=== PATIENT | female | born 1985 | race Caucasian/White ===

== ENCOUNTER 2019-05-30 19:06 | Emergency (ER) | payer OTHER ==
[2019-05-30 19:36] VITALS: BP 149/54; PULSE 98; RESP 18; TEMP 98.1
[2019-05-30 20:48] LABS: Appearance,Urine Cloudy (Clear); Bilirubin,Urine Negative (Negative); Blood,Urine Trace (Negative); Color,Urine Yellow; Glucose,Urine (UA) Negative (Negative); Ketones,Urine Negative (Negative); Leukocyte Esterase,Urine Large (Negative); Mucus,Urine Occasional /hpf; Nitrite,Urine Negative (Negative); Protein,Urine Negative (Negative); RBC,Urine 5 /hpf (0-5); Specific Gravity,Urine 1.014 (1.001-1.035); Squamous Epithelial Cell,Urine 6 /hpf (0-4); Urobilinogen,Urine <2.0 mg/dL (<2.0); WBC,Urine 23 /hpf (0-5)
[2019-05-30 21:35] LABS: Basophils # (A) 0.1 k/uL (0-0.2); Basophils % (A) 0 %; Eosinophils # (A) 0.3 k/uL (0-0.7); Eosinophils % (A) 2 %; HCT 34.7 % (34.0-46.0); HGB 11.4 gm/dL (11.4-16.0); Lymphocytes # (A) 2.3 k/uL (1.0-4.8); Lymphocytes % (A) 13 %; MCH 28.6 pg (25.0-35.0); MCHC 32.8 g/dL (31.0-37.0); MCV 87.1 fL (80.0-100.0); Mean Platelet Volume 7.2; Monocytes # (A) 0.9 k/uL (0-1.0); Monocytes % (A) 5 %; Neutrophils # (A) 13.8 k/uL (1.3-7.7); Neutrophils % (A) 79 %; Platelet Count 245 k/uL (150-450); RBC 3.98 m/uL (3.80-5.40); RDW 13.7 % (11.5-15.5); WBC 17.5 k/uL (3.8-10.6)
[2019-05-30 21:43] LABS: INR 0.8 (<1.2); Partial Thromboplastin Time 26.6 sec (22.0-30.0); Prothrombin Time 9.4 sec (9.0-12.0)
[2019-05-30 21:44] LABS: ALT 18 U/L (9-52); AST 17 U/L (14-36); African American GFR (CKD) >90 (>60 ml/min/1.73 sqM); Albumin 3.9 g/dL (3.5-5.0); Alkaline Phosphatase 56 U/L (38-126); Anion Gap 8 mmol/L; Blood Urea Nitrogen 9 mg/dL (7-17); Carbon Dioxide 26 mmol/L (22-30); Chloride 103 mmol/L (98-107); Glucose 78 mg/dL (74-99); Potassium 3.9 mmol/L (3.5-5.1); Sodium 137 mmol/L (137-145); Total Bilirubin <0.1 mg/dL (0.2-1.3); Total Protein 6.8 g/dL (6.3-8.2)
[2019-05-30 22:31] LABS: HCG,Quantitative Serum 42960.6 mIU/mL
--- NOTE | 2019-05-30 22:31 | US ---
EXAM: US After First Trimester, Transabdominal/Transvaginal DATE OF EXAM: 05/30/2019 10:11 PM COMPARISON: NONE CLINICAL HISTORY: pain. Pain per order. Vaginal bleeding x 5 days. Hx ovarian cyst. . EXAM PERFORMED: Transvaginal (TV) and Transabdominal (TA). Transvaginal imaging performed to better visualize mixed area seen in right ovary and to visualize left ovary. EXAM MEASUREMENTS: GESTATIONAL AGE / DATING Physician Established: Not yet established Dates by LMP: (14 weeks/0 days) EDC: 11/28/2019 Dates by First Scan: This is first scan Dates by Current Scan for: (13 weeks/6 days) EDC: 11/29/2019 MATERNAL ANATOMY Uterus: 12.9 x 8.0 x 9.0 cm. Right Ovary: 4.9 x 2.2 x 2.4 cm. Anechoic area with echogenic components seen measurin.8 x 2.0 x 2.1 cm. Left Ovary: not seen secondary to bowel gas Post CDS / Adnexa: appear wnl Presence of free fluid: minimal adjacent to right ovary Presence of corpus luteal cyst: Area of mixed echogenicity and peripheral vascularity seen measurin.6 x 1.6 x 1.9 cm. Presence of subchorionic bleed: not seen GESTATION / SURVEY CRL: 7.76 cm. (13 weeks/6 days) Yolk Sac (normal less than 6mm): not seen Heart Rate: 158 bpm Rhythm: Normal IUP: Viable IUP Date of LMP: 02/21/2019 Beta HcG (if available): not available IMPRESSION: 1. Single live IUP with an estimated gestational age of 13 weeks and 6 days. 2. Simple-appearing cyst within the right ovary measured 2.8 cm. Corpus luteum is also noted within the right ovary. No torsion.
[2019-05-30] MEDS ORDERED: cefTRIAXone 1,000 MG VIAL (IM USE) IM STA (22:49)
[2019-05-30] MEDS ORDERED: AZITHROMYCIN 250 MG TAB PO STA (22:50)
[2019-05-30] MEDS ORDERED: cefTRIAXone 250 MG VIAL IM STA (22:57)
[2019-05-30] MEDS ORDERED: metroNIDAZOLE 500 MG TAB PO STA (23:21)
--- NOTE | 2019-05-30 23:27 | ED ---
Female Urogenital HPI - General Chief complaint: Vaginal Bleeding Stated complaint: 15wks preg, bleeding Time Seen by Provider: 05/30/19 19:41 Source: patient Mode of arrival: ambulatory Limitations: no limitations - History of Present Illness Initial comments: the patient is a 33-year-old female presents to the emergency room with reported vaginal bleeding. She states it is been going on for the past 5 days. She is currently approximately 14 weeks . States her last menstrual period was February 21. She has had no care. She is currently at [facility] for rehab. states that she is on methadone for opioid addiction. the bleeding was bright red blood in color. Is now turned into a brownish discoloration and has slowed. She reports abnormal discharge with the bleeding. States the discharge is also brown and thick in color. She does have concern for sexually transmitted infections. She denies any pelvic pain or cramping. No reported fevers or chills. Denies any chest pain or shortness of breath. no back pain or flank pain. Denies dysuria, hematuria or difficulty voiding. Denies any changes in her bowel movements. She denies any nausea or vomiting. No headaches, visual changes, right upper quadrant abdominal pain or lower extremity edema. there are no other alleviating, precipitating or modifying factors Last Menstrual Period: 02/21/19 - Related Data Previous Rx's Medication Instructions Recorded Cephalexin [Keflex] 500 mg PO BID #10 cap 05/30/19 metroNIDAZOLE [Flagyl] 500 mg PO BID #14 tab 05/30/19 Allergies Allergy/AdvReac Type Severity Reaction Status Date / Time No Known Allergies Allergy Verified 05/30/19 20:12 Review of Systems ROS Statement: Those systems with pertinent positive or pertinent negative responses have been documented in the HPI. ROS Other: All systems not noted in ROS Statement are negative. Past Medical History Past Medical History: No Reported History History of Any Multi-Drug Resistant Organisms: None Reported Past Surgical History: Adenoidectomy, Appendectomy, Tonsillectomy Past Psychological History: No Psychological Hx Reported Smoking Status: Current every day smoker Past Alcohol Use History: None Reported Past Drug Use History: None Reported General Exam Limitations: no limitations Course Vital Signs 05/30/19 19:33 Temperature 98.1 F Pulse Rate 98 Respiratory 18 Rate Blood Pressure 149/54 O2 Sat by Pulse 100 Oximetry Medical Decision Making - Medical Decision Making the patient is placed in room 25. I did perform a thorough history and physical exam. I did discuss diagnosis, differential and treatment options. I did recommend laboratory studies, urinalysis and a pelvic ultrasound. The patient did agree to this. Upon return results the patient does have O+ blood type. Her with blood cell count is 17.5. Beta Quant is a 42,960. urinalysis is positive for the site esterase and white blood cells. it is not a clean Katsch. pelvic ultrasound demonstrates an intrauterine at 13 weeks 6 days. there is positive heart tones at 150 bpm. I did inform the patient of these results. A pelvic examination was performed with the presence of a female nurse. Examination revealed normal external female genitalia. Speculum exam did reveal a moderate amount of thickgreen , purulent drainage. I did take cultures. I did recommend treatment with Rocephin and azithromycin. The patient was given 250 mg IM of Rocephin and 1 g of oral azithromycin. I also provided the patient with 500 mg of Flagyl as I am concerned for BV. The patient's will be discharged home at this time and is given a prescription for Flagyl and Keflex. She is to take a vitamin. reason needs to follow-up with her GRAPHIC ARTS INSTRUCTOR within 2-4 days. this is written on the patient's discharge paperwork should there is no miscommunication when she returns back to [facility]. the patient's initial blood pressure was noted to be elevated. patient is asystematic at this time. No signs of protein in the urine , lower extremity swelling , headaches or right upper quadrant abdominal pain. if the patient has any new or worsening symptoms she male voice come back to the emergency room for further evaluation. The patient understood this. She was given written and verbal discharge instructions she was discharged home in stable condition - Lab Data Result diagrams: 05/30/19 21:25 05/30/19 21:25 Lab Results 05/30/19 05/30/19 05/30/19 Range/Units 20:20 21:25 21:25 WBC 17.5 H (3.8-10.6) k/uL RBC 3.98 (3.80-5.40) m/uL Hgb 11.4 (11.4-16.0) gm/dL Hct 34.7 (34.0-46.0) % MCV 87.1 (80.0-100.0) fL MCH 28.6 (25.0-35.0) pg MCHC 32.8 (31.0-37.0) g/dL RDW 13.7 (11.5-15.5) % Plt Count 245 (150-450) k/uL Neutrophils % 79 % Lymphocytes % 13 % Monocytes % 5 % Eosinophils % 2 % Basophils % 0 % Neutrophils # 13.8 H (1.3-7.7) k/uL Lymphocytes # 2.3 (1.0-4.8) k/uL Monocytes # 0.9 (0-1.0) k/uL Eosinophils # 0.3 (0-0.7) k/uL Basophils # 0.1 (0-0.2) k/uL PT (9.0-12.0) sec INR (<1.2) APTT (22.0-30.0) sec Sodium (137-145) mmol/L Potassium (3.5-5.1) mmol/L Chloride (98-107) mmol/L Carbon Dioxide (22-30) mmol/L Anion Gap mmol/L BUN (7-17) mg/dL Creatinine (0.52-1.04) mg/dL Est GFR (CKD-EPI)AfAm (>60 ml/min/1.73 sqM) Est GFR (CKD-EPI)NonAf (>60 ml/min/1.73 sqM) Glucose (74-99) mg/dL Calcium (8.4-10.2) mg/dL Total Bilirubin (0.2-1.3) mg/dL AST (14-36) U/L ALT (9-52) U/L Alkaline Phosphatase (38-126) U/L Total Protein (6.3-8.2) g/dL Albumin (3.5-5.0) g/dL HCG, Quant mIU/mL Urine Color Yellow Urine Appearance Cloudy H (Clear) Urine pH 6.0 (5.0-8.0) Ur Specific [place] 1.014 (1.001-1.035) Urine Protein Negative (Negative) Urine Glucose (UA) Negative (Negative) Urine Ketones Negative (Negative) Urine Blood Trace H (Negative) Urine Nitrite Negative (Negative) Urine Bilirubin Negative (Negative) Urine Urobilinogen <2.0 (<2.0) mg/dL Ur Leukocyte Esterase Large H (Negative) Urine RBC 5 (0-5) /hpf Urine WBC 23 H (0-5) /hpf Ur Squamous Epith Cells 6 H (0-4) /hpf Urine Mucus Occasional H (None) /hpf Trichomonas Ag (Rapid) (Negative) Blood Type O Positive Blood Type Recheck No Previous Record Bld Type Recheck Status ABR ONLY 05/30/19 05/30/19 05/30/19 Range/Units 21:25 21:25 23:00 WBC (3.8-10.6) k/uL RBC (3.80-5.40) m/uL Hgb (11.4-16.0) gm/dL Hct (34.0-46.0) % MCV (80.0-100.0) fL MCH (25.0-35.0) pg MCHC (31.0-37.0) g/dL RDW (11.5-15.5) % Plt Count (150-450) k/uL Neutrophils % % Lymphocytes % % Monocytes % % Eosinophils % % Basophils % % Neutrophils # (1.3-7.7) k/uL Lymphocytes # (1.0-4.8) k/uL Monocytes # (0-1.0) k/uL Eosinophils # (0-0.7) k/uL Basophils # (0-0.2) k/uL PT 9.4 (9.0-12.0) sec INR 0.8 (<1.2) APTT 26.6 (22.0-30.0) sec Sodium 137 (137-145) mmol/L Potassium 3.9 (3.5-5.1) mmol/L Chloride 103 (98-107) mmol/L Carbon Dioxide 26 (22-30) mmol/L Anion Gap 8 mmol/L BUN 9 (7-17) mg/dL Creatinine 0.40 L (0.52-1.04) mg/dL Est GFR (CKD-EPI)AfAm >90 (>60 ml/min/1.73 sqM) Est GFR (CKD-EPI)NonAf >90 (>60 ml/min/1.73 sqM) Glucose 78 (74-99) mg/dL Calcium 9.0 (8.4-10.2) mg/dL Total Bilirubin <0.1 L (0.2-1.3) mg/dL AST 17 (14-36) U/L ALT 18 (9-52) U/L Alkaline Phosphatase 56 (38-126) U/L Total Protein 6.8 (6.3-8.2) g/dL Albumin 3.9 (3.5-5.0) g/dL HCG, Quant 44624.6 mIU/mL Urine Color Urine Appearance (Clear) Urine pH (5.0-8.0) Ur Specific [place] (1.001-1.035) Urine Protein (Negative) Urine Glucose (UA) (Negative) Urine Ketones (Negative) Urine Blood (Negative) Urine Nitrite (Negative) Urine Bilirubin (Negative) Urine Urobilinogen (<2.0) mg/dL Ur Leukocyte Esterase (Negative) Urine RBC (0-5) /hpf Urine WBC (0-5) /hpf Ur Squamous Epith Cells (0-4) /hpf Urine Mucus (None) /hpf Trichomonas Ag (Rapid) Negative (Negative) Blood Type Blood Type Recheck Bld Type Recheck Status Disposition Clinical Impression: Vaginal bleeding, Second trimester , Cervicitis Disposition: HOME SELF-CARE Condition: Stable Instructions (If sedation given, give patient instructions): Threatened Miscarriage (ED), Cervicitis (ED), Urinary Tract Infection in Women (ED) Additional Instructions: Please follow-up with your GRAPHIC ARTS INSTRUCTOR within 2-4 days. You must absolutely be re- evaluated and have repeat bloodwork performed. Return to the emergency room if you have any new or worsening symptoms Prescriptions: metroNIDAZOLE [Flagyl] 500 mg PO BID #14 tab Cephalexin [Keflex] 500 mg PO BID #10 cap Is patient prescribed a controlled substance at d/c from ED?: No Referrals: None,Stated [Primary Care Provider] - 1-2 days Time of Disposition: 23:27
[2019-06-01 13:49] LABS: C. trachomatis,PCR Negative (Neg,Equiv); Chlamydia trachomatis Source Vagina
[2019-06-01 14:01] LABS: N. gonorrhoeae,PCR Negative (Neg,Equiv); Neisseria Source Vagina
== END 2019-05-30 23:36 | disposition home or self-care (01) ==
LOC: EC 19:06
DX: O23.512 Infections of cervix in pregnancy, second trimester (principal); O99.332 Smoking (tobacco) complicating pregnancy, second trimester; F17.200 Nicotine dependence, unspecified, uncomplicated; Z53.9 Procedure and treatment not carried out, unspecified reason; Z3A.13 13 weeks gestation of pregnancy
CPT/HCPCS: 36415; 86900; 86901; 80053; 85025; 85610; 85730; 81001; 84702; 87808; 87491; 87591; 87070; 87205; 76801; 76817; 96372; 99284; J0696

== ENCOUNTER 2019-06-02 10:29 | Emergency (ER) | payer OTHER ==
[2019-06-02 10:35] VITALS: TEMP 97.5
[2019-06-02 11:47] LABS: Basophils # (A) 0.1 k/uL (0-0.2); Basophils % (A) 0 %; Eosinophils # (A) 0.4 k/uL (0-0.7); Eosinophils % (A) 2 %; HCT 32.3 % (34.0-46.0); HGB 10.8 gm/dL (11.4-16.0); Lymphocytes # (A) 2.1 k/uL (1.0-4.8); Lymphocytes % (A) 13 %; MCH 28.7 pg (25.0-35.0); MCHC 33.3 g/dL (31.0-37.0); MCV 86.1 fL (80.0-100.0); Mean Platelet Volume 7.3; Monocytes # (A) 0.6 k/uL (0-1.0); Monocytes % (A) 4 %; Neutrophils # (A) 12.7 k/uL (1.3-7.7); Neutrophils % (A) 79 %; Platelet Count 298 k/uL (150-450); RBC 3.75 m/uL (3.80-5.40); RDW 15.1 % (11.5-15.5)
--- NOTE | 2019-06-02 11:52 | ED ---
Female Urogenital HPI - General Source: patient Mode of arrival: ambulatory Limitations: no limitations <Kathy Andersen - Last Filed: 06/02/19 18:47> <Harika Kumar - Last Filed: 06/05/19 02:48> - General Chief complaint: Vaginal Bleeding Stated complaint: Vaginal bleeding-14 wks pg Time Seen by Provider: 06/02/19 10:41 - History of Present Illness Initial comments: Patient is a 33-year-old female presenting to the emergency Department with complaints of vaginal bleeding for approximately 1 week. Patient is currently 14 weeks . Patient is . Patient has had no care yet. Patient has an appointment with BUSINESS DEVELOPMENT ENGINEER in one week. She is currently at [facility] for rehab and is on methadone for opioid addiction. Patient was in the ER 3 days ago for same complaint and was treated for possible STDs, UTI, BV. Patient has been having brownishyellowish discharge as well as blood. Patient states now she feels like there is more blood in his discharge. Patient states she is not having abdominal pain. Reports some mild nausea but that has been consistent throughout this . No vomiting. Patient denies fever, chills. (Kathy Andersen) - Related Data Previous Rx's Medication Instructions Recorded Cephalexin [Keflex] 500 mg PO BID #10 cap 05/30/19 metroNIDAZOLE [Flagyl] 500 mg PO BID #14 tab 05/30/19 Allergies Allergy/AdvReac Type Severity Reaction Status Date / Time No Known Allergies Allergy Verified 06/02/19 10:30 Review of Systems ROS Other: All systems not noted in ROS Statement are negative. <Kathy Andersen - Last Filed: 06/02/19 18:47> ROS Other: All systems not noted in ROS Statement are negative. <Harika Kumar - Last Filed: 06/05/19 02:48> ROS Statement: Those systems with pertinent positive or pertinent negative responses have been documented in the HPI. Past Medical History Past Medical History: No Reported History History of Any Multi-Drug Resistant Organisms: None Reported Past Surgical History: Adenoidectomy, Appendectomy, Tonsillectomy Past Psychological History: No Psychological Hx Reported Smoking Status: Current every day smoker Past Alcohol Use History: None Reported Past Drug Use History: None Reported <Kathy Andersen - Last Filed: 06/02/19 18:47> General Exam Limitations: no limitations External exam: Present: normal external exam. Absent: erythema, swelling Speculum exam: Present: vaginal discharge (Bloody in nature), cervical discharge, vaginal bleeding. Absent: foreign body <Kathy Andersen - Last Filed: 06/02/19 18:47> - General Exam Comments Initial Comments: GENERAL: Well-appearing, well-nourished and in no acute distress. HEAD: Atraumatic, normocephalic. EYES: Pupils equal round and reactive to light, extraocular movements intact, sclera anicteric, conjunctiva are normal. ENT: TMs normal, nares patent, oropharynx clear without exudates. Moist mucous membranes. NECK: Normal range of motion, supple without lymphadenopathy or JVD. LUNGS: Breath sounds clear to auscultation bilaterally and equal. No wheezes rales or rhonchi. HEART: Regular rate and rhythm without murmurs, rubs or gallops. ABDOMEN: Soft, nontender, normoactive bowel sounds. No guarding, no rebound. No masses appreciated. EXTREMITIES: Normal range of motion, no pitting or edema. No clubbing or cyanosis. NEUROLOGICAL: Cranial nerves II through XII grossly intact. Normal speech, normal gait. PSYCH: Normal mood, normal affect. SKIN: Warm, Dry, normal turgor, no rashes or lesions noted. (Kathy Andersen) Course Vital Signs 06/02/19 06/02/19 06/02/19 10:32 12:56 15:14 Temperature 97.5 F L 97.5 F L Pulse Rate 85 63 63 Respiratory 18 14 14 Rate Blood Pressure 123/75 107/69 111/70 O2 Sat by Pulse 98 98 98 Oximetry Medical Decision Making - Lab Data Result diagrams: 06/02/19 11:35 06/02/19 11:35 <Kathy Andersen - Last Filed: 06/02/19 18:47> - Lab Data Result diagrams: 06/02/19 11:35 06/02/19 11:35 <Harika Kumar - Last Filed: 06/05/19 02:48> - Medical Decision Making Patient is a 33-year-old female presenting with vaginal bleeding that has increased in the past 2 days. Patient is currently 14 weeks . Patient was here 3 days ago for similar issue. Patient is currently on Keflex and Flagyl. Ultrasound previously was normal. Patient returns stating she is bleeding a little bit more than she was before and wants to make sure she is still okay. Patient has BUSINESS DEVELOPMENT ENGINEER appointment for next week. Patient is denying abdominal pain at this time. Case was discussed with Dr. Kumar as she saw her 3 days ago. Lab work was repeated. White count is slightly decreased at 16 from 17.5. The rest of CBC is within normal limits. CMP is within normal limits. HCG Quant was relatively unchanged from 3 days ago. UA looks improved with minimal wbc's. Vaginal exam was performed by Dr. Kumar and revealed an improvement in cervical discharge. Dr. Kumar attempted to contact patient's BUSINESS DEVELOPMENT ENGINEER but there is no call back. Patient is stable for discharge at this time. She will continue with current antibiotics and vitamin. Patient will follow-up with OB next week as discussed. Strict return parameters were discussed with the patient she verbalized understanding. (Kathy Andersen) I did evaluate the patient myself and performed the speculum exam which demonstrated a mild improvement in the patients discharge. No bright red bleeding. Some brownish colored discharge. I did agree with the management of the patient as described above. (Harika Kumar) - Lab Data Lab Results 06/02/19 06/02/19 06/02/19 Range/Units 11:35 11:35 11:35 WBC 16.0 H (3.8-10.6) k/uL RBC 3.75 L (3.80-5.40) m/uL Hgb 10.8 L (11.4-16.0) gm/dL Hct 32.3 L (34.0-46.0) % MCV 86.1 (80.0-100.0) fL MCH 28.7 (25.0-35.0) pg MCHC 33.3 (31.0-37.0) g/dL RDW 15.1 (11.5-15.5) % Plt Count 298 (150-450) k/uL Neutrophils % 79 % Lymphocytes % 13 % Monocytes % 4 % Eosinophils % 2 % Basophils % 0 % Neutrophils # 12.7 H (1.3-7.7) k/uL Lymphocytes # 2.1 (1.0-4.8) k/uL Monocytes # 0.6 (0-1.0) k/uL Eosinophils # 0.4 (0-0.7) k/uL Basophils # 0.1 (0-0.2) k/uL Sodium 138 (137-145) mmol/L Potassium 4.7 (3.5-5.1) mmol/L Chloride 106 (98-107) mmol/L Carbon Dioxide 20 L (22-30) mmol/L Anion Gap 12 mmol/L BUN 11 (7-17) mg/dL Creatinine 0.38 L (0.52-1.04) mg/dL Est GFR (CKD-EPI)AfAm >90 (>60 ml/min/1.73 sqM) Est GFR (CKD-EPI)NonAf >90 (>60 ml/min/1.73 sqM) Glucose 80 (74-99) mg/dL Calcium 9.2 (8.4-10.2) mg/dL Total Bilirubin 0.5 (0.2-1.3) mg/dL AST 31 (14-36) U/L ALT 17 (9-52) U/L Alkaline Phosphatase 50 (38-126) U/L Total Protein 7.3 (6.3-8.2) g/dL Albumin 4.0 (3.5-5.0) g/dL HCG, Quant 50530.7 mIU/mL Urine Color Yellow Urine Appearance Clear (Clear) Urine pH 7.0 (5.0-8.0) Ur Specific [place] 1.015 (1.001-1.035) Urine Protein Negative (Negative) Urine Glucose (UA) Negative (Negative) Urine Ketones Negative (Negative) Urine Blood Small H (Negative) Urine Nitrite Negative (Negative) Urine Bilirubin Negative (Negative) Urine Urobilinogen <2.0 (<2.0) mg/dL Ur Leukocyte Esterase Moderate H (Negative) Urine RBC 4 (0-5) /hpf Urine WBC 3 (0-5) /hpf Ur Squamous Epith Cells 6 H (0-4) /hpf Urine Mucus Rare H (None) /hpf Disposition Is patient prescribed a controlled substance at d/c from ED?: No <Kathy Andersen - Last Filed: 06/02/19 18:47> <Harika Kumar - Last Filed: 06/05/19 02:48> Clinical Impression: Second trimester , Vaginal bleeding Disposition: HOME SELF-CARE Condition: Stable Instructions (If sedation given, give patient instructions): Vaginal Discharge (ED) Additional Instructions: Please return to the Emergency Department if symptoms worsen or any other concerns. Continue with antibiotics and vitamin. Follow-up with BUSINESS DEVELOPMENT ENGINEER next week as discussed. Referrals: None,Stated [Primary Care Provider] - 1-2 days
[2019-06-02 12:00] LABS: African American GFR (CKD) >90 (>60 ml/min/1.73 sqM); Anion Gap 12 mmol/L; Blood Urea Nitrogen 11 mg/dL (7-17); Calcium 9.2 mg/dL (8.4-10.2); Carbon Dioxide 20 mmol/L (22-30); Chloride 106 mmol/L (98-107); Glucose 80 mg/dL (74-99); Sodium 138 mmol/L (137-145); Total Bilirubin 0.5 mg/dL (0.2-1.3); Total Protein 7.3 g/dL (6.3-8.2)
[2019-06-02 12:04] LABS: ALT 17 U/L (9-52); AST 31 U/L (14-36); Alkaline Phosphatase 50 U/L (38-126); Potassium 4.7 mmol/L (3.5-5.1)
[2019-06-02 12:23] LABS: Appearance,Urine Clear (Clear); Bilirubin,Urine Negative (Negative); Blood,Urine Small (Negative); Color,Urine Yellow; Glucose,Urine (UA) Negative (Negative); Ketones,Urine Negative (Negative); Leukocyte Esterase,Urine Moderate (Negative); Mucus,Urine Rare /hpf; Nitrite,Urine Negative (Negative); Protein,Urine Negative (Negative); RBC,Urine 4 /hpf (0-5); Specific Gravity,Urine 1.015 (1.001-1.035); Squamous Epithelial Cell,Urine 6 /hpf (0-4); Urobilinogen,Urine <2.0 mg/dL (<2.0)
[2019-06-02 12:54] LABS: HCG,Quantitative Serum 42620.7 mIU/mL
[2019-06-02 12:59] VITALS: PULSE 63; RESP 14
--- NOTE | 2019-06-02 13:22 | US ---
EXAMINATION TYPE: US OB >= 14 wk fetus DATE OF EXAM: 06/02/2019 COMPARISON: US 2019 CLINICAL HISTORY: 33-year-old female Bleeding x 1 week, started passing large clots yesterday, previo us ultrasound done 3 days ago, 2, para 1 TECHNIQUE: Transabdominal (TA) FINDINGS: GESTATIONAL AGE / DATING Physician Established: Not established yet Dates by LMP: (14 weeks/3 days) EDC: 11/28/2019 Dates by First Scan: (14 weeks/2 days) EDC: 11/29/2019 Dates by Current Scan: (14 weeks/6 days) EDC: 11/25/2019 SURVEY IUP: Single PLACENTA: Anterior PREVIA: No Previa. Inferior placental tip located 1.9 cm from the internal cervical os. ALEXA: 11.2 cm Normal CERVICAL LENGTH (transabdominal: norm > 3.0cm): 3.3 cm BIOMETRY PRESENTATION: Vertex LIE: Longitudinal BPD: 2.6 cm 14 weeks / 4 days HC: 10.0 cm 14 weeks / 5 days AC: 7.9 cm 14 weeks / 2 days FL: 1.4 cm 14 weeks / 1 days ESTIMATED WEIGHT IN GRAMS: 94.7 grams ESTIMATED WEIGHT IN LBS/OZ: 0 lbs. 3 oz. WEIGHT PERCENTAGE BASED ON ESTABLISHED DATES: 27% HC/AC: 1.26 Normal FL/AC: 17.84 HEART RATE: 147 bpm RHYTHM: Normal Viable single IUP measuring 14 weeks 6 days with a heart rate of 147bpm and an estimated delivery rebekah e of 11/25/2019. IMPRESSION: Single living intrauterine with estimated gestational age of 14 weeks 3 days by LMP. Curren t ultrasound biometry is slightly larger (14 weeks 6 days) but measurements [address] the gestation at th e 27th percentile for weight. Follow up as clinically indicated. Low-lying anterior placenta measuring 1.9 cm from the internal cervical os.
[2019-06-02 15:15] VITALS: BP 111/70
== END 2019-06-02 15:31 | disposition home or self-care (01) ==
LOC: EC 10:29
DX: O20.9 Hemorrhage in early pregnancy, unspecified (principal); O99.89 Other specified diseases and conditions complicating pregnancy, childbirth and the puerperium; R11.0 Nausea; O99.322 Drug use complicating pregnancy, second trimester; F11.20 Opioid dependence, uncomplicated; O99.332 Smoking (tobacco) complicating pregnancy, second trimester; F17.200 Nicotine dependence, unspecified, uncomplicated; Z90.49 Acquired absence of other specified parts of digestive tract; Z3A.14 14 weeks gestation of pregnancy
CPT/HCPCS: 36415; 76805; 80053; 81001; 84702; 85025; 99284